=== PATIENT | male | born 1965 | race Caucasian/White ===

== ENCOUNTER 2021-08-22 00:41 | Observation (INO) ==
[2021-08-22] MEDS ORDERED: Isovue-370 500 ML BOTTLE IVP ONE (01:17)
[2021-08-22 01:19] LABS: Basophils % 0.1 %; Eosinophils # 0.1 K/mcL (0.0-0.6); Eosinophils % 0.4 %; Hemoglobin 14.9 g/dL (12.9-16.9); Immature Granulocytes % 0.3 % (0-4); Lymphocytes # 1.3 K/mcL (0.6-4.6); Mean Corpuscular HGB Conc 33.9 g/dL (31.6-35.5); Mean Corpuscular Hemoglobin 30.4 pg (28.0-33.3); Mean Corpuscular Volume 89.8 fL (83.0-100.0); Mean Platelet Volume 9.2 fL (9.4-12.4); Monocytes # 0.8 K/mcL (0.0-1.3); Monocytes % 5.7 %; Neutrophils # 11.2 K/mcL (1.6-8.9); Platelet Count 198 K/mcL (140-400); Red Cell Distribution Width 12.7 % (11.5-14.5); Segmented Neutrophils % 83.5 %; White Blood Count 13.4 K/mcL (4.3-11.1)
[2021-08-22] MEDS ORDERED: 0.9 % Sodium Chloride 1,000 ML IVC ONE (01:23)
[2021-08-22] MEDS ORDERED: Ketorolac 30 MG/ML VIAL IVP ONE (01:24)
[2021-08-22] MEDS ORDERED: Ondansetron 4 MG/2 ML VIAL IVP STA (01:28)
[2021-08-22] MEDS ORDERED: Morphine Sulfate 2 MG/ML SYRINGE IVP STA (01:28)
[2021-08-22 01:30] LABS: Bilirubin,Urine Negative (Negative); Blood,Urine Negative (Negative); Clarity,Urine Turbid (Clear); Color,Urine Light-Yellow (Yellow); Glucose,Urine (UA) Normal (Normal); Ketones,Urine Negative (Negative); Leukocyte Esterase,Urine Negative (Negative); Mucus,Urine Few per lpf (None-Few); Nitrite,Urine Negative (Negative); Protein,Urine Trace mg/dL (Neg-Trace); Specific Gravity,Urine 1.023 (1.010-1.025); Urobilinogen,Urine Normal (Normal)
[2021-08-22 01:33] LABS: Alanine Aminotransferase 15 Units/L (7-52); Albumin 4.2 g/dL (3.5-5.7); Albumin/Globulin Ratio 1.9 (1.1-2.2); Alkaline Phosphatase 85 Units/L (34-104); Aspartate Amino Transferase 16 Units/L (13-39); BUN/Creatinine Ratio 17 (6-26); Bilirubin,Indirect 0.4 mg/dL (0.0-1.0); Bilirubin,Total 0.4 mg/dL (0.3-1.0); Blood Urea Nitrogen 18 mg/dL (6-20); Calcium 8.9 mg/dL (8.6-10.3); Carbon Dioxide 31 mEq/L (23-29); Chloride 103 mEq/L (98-107); Globulin 2.2 g/dL (2.4-3.5); Glucose 111 mg/dL (70-105); Lipase 27 Units/L (11-82); Osmolality,Calculated 289 (280-300); Potassium 3.8 mEq/L (3.5-5.1); Sodium 138 mEq/L (136-145); Total Protein 6.4 g/dL (6.4-8.9); eGFR For African Americans > 60 (> 60); eGFR For Non-African Americans > 60 (> 60)
[2021-08-22] MEDS ORDERED: MetroNIDAZOLE 500 MG/100 ML 500 MG/100 ML BAG IVPB ONE (02:34)
[2021-08-22] MEDS ORDERED: *HR* HYDROmorphone (PF) 1 MG/ML SYRINGE IVP ONE (02:46)
[2021-08-22 03:11] LABS: Prothrombin Time 11.2 Seconds (9.4-12.1)
[2021-08-22 03:13] LABS: Activated Partial Thrombo Time 29.1 Seconds (26.0-36.0)
[2021-08-22] MEDS ORDERED: Ondansetron 4 MG/2 ML VIAL IVP PRN ×2 (06:54→13:14)
[2021-08-22] MEDS ORDERED: Acetaminophen IV 1,000 MG/100 ML BAG IVPB ONE (06:58)
[2021-08-22] MEDS ORDERED: Morphine Sulfate 2 MG/ML SYRINGE IVP PRN ×2 (06:58→13:14)
[2021-08-22] MEDS ORDERED: Ringers Solution, Lactated 1,000 ML IVC SCH (07:00)
[2021-08-22] MEDS ORDERED: Lidocaine HCL 4 ML Topical Solution (Laryng-O-Jet Kit Sterile Pak) TP ONE (07:34)
[2021-08-22] MEDS ORDERED: *HR* Propofol 200 MG/20 ML VIAL IVP ONE ×2 (07:37)
[2021-08-22] MEDS ORDERED: *HR* Succinylcholine 200 MG/10 ML VIAL IVP ONE (07:42)
[2021-08-22] MEDS ORDERED: Lidocaine -MPF 2% 5 ML VIAL ONE (07:45)
[2021-08-22] MEDS ORDERED: *HR* Rocuronium Bromide 50 MG/5 ML VIAL ONE ×2 (07:45→10:03)
[2021-08-22] MEDS ORDERED: Ondansetron 4 MG/2 ML VIAL ONE ×2 (07:45→09:13)
[2021-08-22] MEDS ORDERED: MetroNIDAZOLE 500 MG/100 ML 500 MG/100 ML BAG IVPB SCH (08:00)
[2021-08-22] MEDS ORDERED: Pantoprazole 40 MG VIAL IVP SCH (09:00)
[2021-08-22] MEDS ORDERED: *HR* FentaNYL (PF) 100 MCG/2 ML VIAL ONE (09:11)
[2021-08-22] MEDS ORDERED: *HR* HYDROMORPHONE 2 MG/ML VIAL ONE (09:59)
[2021-08-22] MEDS ORDERED: Sugammadex Sodium 200 MG/2 ML VIAL IV ONE (10:00)
[2021-08-22] MEDS ORDERED: clonazePAM 1 MG TABLET PO PRN (13:14)
[2021-08-22] MEDS: Acetaminophen IV 1,000 MG/100 ML BAG IVPB SCH ×2 (14:51→21:36)
[2021-08-22] MEDS: MetroNIDAZOLE 500 MG/100 ML 500 MG/100 ML BAG IVPB SCH (16:22)
[2021-08-22] MEDS ORDERED: lamoTRIgine 100 MG TABLET PO SCH (21:00)
[2021-08-23] MEDS: MetroNIDAZOLE 500 MG/100 ML 500 MG/100 ML BAG IVPB SCH ×2 (00:21→08:21)
[2021-08-23 02:27] LABS: Basophils % 0.1 %; Hematocrit 39.6 % (37.5-50.1); Immature Granulocytes % 0.4 % (0-4); Lymphocytes # 0.9 K/mcL (0.6-4.6); Lymphocytes % 6.5 %; Mean Corpuscular HGB Conc 33.6 g/dL (31.6-35.5); Mean Corpuscular Hemoglobin 30.6 pg (28.0-33.3); Mean Corpuscular Volume 91.2 fL (83.0-100.0); Mean Platelet Volume 9.8 fL (9.4-12.4); Monocytes # 0.9 K/mcL (0.0-1.3); Monocytes % 6.5 %; Neutrophils # 11.9 K/mcL (1.6-8.9); Platelet Count 194 K/mcL (140-400); Red Blood Count 4.34 M/mcL (4.19-5.50); Red Cell Distribution Width 12.5 % (11.5-14.5); Segmented Neutrophils % 86.5 %; White Blood Count 13.8 K/mcL (4.3-11.1)
[2021-08-23 02:29] LABS: Hemoglobin 13.3 g/dL (12.9-16.9)
[2021-08-23] MEDS: Acetaminophen IV 1,000 MG/100 ML BAG IVPB SCH ×2 (03:04→08:21)
[2021-08-23] MEDS ORDERED: Pantoprazole 40 MG VIAL IVP SCH (09:00)
[2021-08-23] MEDS ORDERED: amLODIPine 5 MG TABLET PO SCH (09:00)
[2021-08-23 10:35] VITALS: BP 147/78; PULSE 109; TEMP 98.7; O2SAT 91
== END 2021-08-23 11:09 | disposition home or self-care (01) ==
LOC: 3BNU 00:41 → EMEROOARM 00:41 → 3BNU 03:55
PROVIDERS: ADMIT Surgery; ATTEND Surgery